=== PATIENT | female | born 1985 | race Caucasian/White ===

== ENCOUNTER 2023-11-06 10:19 | Observation (INO) | payer OTHER, SELFPAY ==
[2023-11-06 10:38] VITALS: BP 119/76; PULSE 69; TEMP 36.9; O2SAT 99; BMI 31.9
--- NOTE | 2023-11-06 11:01 | ED_ITS ---
HPI - Skin/Abscess/Foreign Bdy General Chief complaint: Skin/Abscess/Foreign Body Stated complaint: LEFT ARM PAIN AND REDNESS POST OP Time Seen by Provider: 11/06/23 10:35 Source: patient Mode of arrival: walk-in Limitations: no limitations History of Present Illness HPI narrative: Patient presents to ED complaining of left arm swelling and redness. She had an abscess in the left axilla area and actually went to [facility] on Tuesday. They did an I&D and placed packing and put her on doxycycline. She marked her arm yesterday because it was getting worse and today the redness had spread down her arm and past the rainer. The area of I&D has now closed up and the redness and swelling is continuing to worsen. She denies fevers or vomiting. No other complaints today at this time Related Data Home Medications ?Medication ?Instructions ?Recorded ?Confirmed doxycycline hyclate 100 mg capsule 100 mg PO Q12H 11/06/23 11/06/23 fluoxetine 20 mg capsule 20 mg PO DAILY 11/06/23 11/06/23 Allergies Allergy/AdvReac Type Severity Reaction Status Date / Time No Known Drug Allergies Allergy Verified 11/06/23 10:41 Review of Systems ROS Status of ROS 10 or more systems reviewed and unremark able except as noted in history and below Exam Narrative Exam Narrative: General: alert, no acute distress Cardiovascular: regular rate and rhythm, normal peripheral perfusion. Respiratory: Lungs CTA, respirations non labored. Extremities: Abscess in the left axilla with erythema extending down to the mid forearm and almost circumferential in the upper arm.Normal distal pulses and sensation.Tenderness to palpation warmth. Neurological: oriented x 4, LOC appropriate for age. Constitutional Vital Signs, click to edit/add: Last Vital Signs Temp 98.1 F 11/06/23 13:44 Pulse 57 L 11/06/23 13:44 Resp 18 11/06/23 13:44 BP 110/76 11/06/23 13:44 Pulse Ox 100 11/06/23 13:44 O2 Del Method Room Air 11/06/23 10:38 Course Vital Signs Vital signs: Vital Signs Temperature 98.5 F 11/06/23 10:38 Pulse Rate 69 11/06/23 10:38 Respiratory Rate 18 11/06/23 10:38 Blood Pressure 119/76 11/06/23 10:38 Pulse Oximetry 99 06/09/24 10:38 Oxygen Delivery Method Room Air 11/06/23 10:38 Temperature 98.1 F 11/06/23 13:44 Pulse Rate 57 L 11/06/23 13:44 Respiratory Rate 18 11/06/23 13:44 Blood Pressure 110/76 11/06/23 13:44 Pulse Oximetry 100 11/06/23 13:44 Oxygen Delivery Method Room Air 11/06/23 10:38 MDM - Skin/Abscess/Foreign Bdy MDM Narrative Medical decision making narrative: Patient's abscess was I&D. Only a small amount of drainage was expressed. Packing was placed in the incision. 2 other incisions were made to see if I could express any more fluid but it was unsuccessful. Mostly it was indurated and no fluid was obtained. Patient's arm is swollen and erythema extends from the axilla all the way down to the mid forearm. Patient will need admitted for IV antibiotics. I spoke to Dr. Montoya and he agrees. Vancomycin was given here in ED. Patient is comfortable care plan for admission. She failed outpatient antibiotics, doxycycline. Differential Diagnosis Differential diagnosis: Likely abscess of skin or subcutaneous tissue and cellulitis Medical Records Attestation: I reviewed the patient's medical records. Lab Data Attestation: I reviewed the patient's lab results. Labs: Lab Results 11/06/23 Range/Units 10:59 WBC 10.5 (4.0-11.0) 10^3/uL RBC 4.64 (4.20-5.40) 10^6/uL Hgb 12.8 (12.0-16.0) g/dL Hct 40.0 (36.0-48.0) % MCV 86.2 (81.0-99.0) fL MCH 27.6 (26.7-34.0) pg MCHC 32.0 (29.9-35.2) g/dL RDW 12.0 (11.0-15.0) % Plt Count 294 (150-450) 10^3/uL MPV 9.1 L (9.5-13.5) fL Neut % (Auto) 76.1 H (43.0-75.0) % Lymph % (Auto) 14.3 L (20.5-60.0) % [place] % (Auto) 8.1 (1.7-12.0) % Eos % (Auto) 0.8 L (0.9-7.0) % Baso % (Auto) 0.3 (0.2-2.0) % Neut # (Auto) 8.0 H (1.4-6.5) 10^3/uL Lymph # (Auto) 1.5 (1.2-3.8) 10^3/uL [place] # (Auto) 0.9 H (0.3-0.8) 10^3/uL Eos # (Auto) 0.1 (0.0-0.7) 10^3/uL Baso # (Auto) 0.0 (0.0-0.1) 10^3/uL Abs Immat Gran (auto) 0.04 H (0.00-0.03) 10^3/uL Imm/Tot Granulo (auto) 0.4 (0.0-0.5) % Sodium 142 (136-145) mmol/L Potassium 3.9 (3.5-5.1) mmol/L Chloride 106 (98-107) mmol/L Carbon Dioxide 28.3 (21.0-32.0) mmol/L Anion Gap 11.6 BUN 9.0 (7.0-18.0) mg/dL Creatinine 0.69 (0.55-1.02) mg/dL Est GFR ( Amer) >60 (>=60) Est GFR (Non-Af Amer) >60 (>=60) BUN/Creatinine Ratio 13.0 Glucose 73 L (74-106) mg/dL Lactate 1.1 (0.4-2.0) mmol/L Calcium 9.1 (8.5-10.1) mg/dL Total Bilirubin 0.4 (0.2-1.0) mg/dL AST 13 L (15-37) U/L ALT 24 (14-59) U/L Alkaline Phosphatase 110 (46-116) U/L Total Protein 7.2 (6.4-8.2) g/dL Albumin 3.1 L (3.4-5.0) g/dL Globulin 4.1 g/dL Albumin/Globulin Ratio 0.8 Discharge Plan Discharge Chief Complaint: Skin/Abscess/Foreign Body Clinical Impression: Cellulitis, Abscess of skin or subcutaneous tissue Patient Disposition: Admitted as Observation Time of Disposition Decision: 13:54 Condition: Fair Prescriptions / Home Meds: No Action doxycycline hyclate 100 mg capsule 100 mg PO Q12H fluoxetine 20 mg capsule 20 mg PO DAILY Print Language: Greek Referrals: Sergey Sandhu MD [Primary Care Provider] - 1 week Procedures ED ID Incision & Drainage I&D Type: abcess Site: upper extremity Side (if applicable): left Anesthetic used: lidocaine 1% Technique: incised with #11 blade Amount of fluid (mL): 3 Irrigation: No Packing used: iodoform Complications: other (no complications)
[2023-11-06] MEDS: LIDOCAINE/EPINEPHRINE/TETRACAINE 3 ML GEL.PF.APP 1.5 ML TOPICAL (11:14)
[2023-11-06] MEDS: KETOROLAC TROMETHAMINE 30 MG/ML VIAL 15 MG IVP (11:15)
[2023-11-06 11:26] LABS: Basophils Percent Auto 0.3 % (0.2-2.0); Eosinophils Absolute Auto 0.1 10^3/uL (0.0-0.7); Eosinophils Percent Auto 0.8 % (0.9-7.0); Hemoglobin 12.8 g/dL (12.0-16.0); Immature Granulocytes Abs Auto 0.04 10^3/uL (0.00-0.03); Immature Granulocytes Pct Auto 0.4 % (0.0-0.5); Lymphocytes Absolute Auto 1.5 10^3/uL (1.2-3.8); Lymphocytes Percent Auto 14.3 % (20.5-60.0); Mean Corpuscular Hemoglobin 27.6 pg (26.7-34.0); Mean Corpuscular Volume 86.2 fL (81.0-99.0); Mean Platelet Volume 9.1 fL (9.5-13.5); Monocytes Absolute Auto 0.9 10^3/uL (0.3-0.8); Monocytes Percent Auto 8.1 % (1.7-12.0); Neutrophils Percent Auto 76.1 % (43.0-75.0); Platelet Count 294 10^3/uL (150-450); Red Blood Count 4.64 10^6/uL (4.20-5.40); White Blood Count 10.5 10^3/uL (4.0-11.0)
[2023-11-06 11:42] LABS: Alanine Aminotransferase 24 U/L (14-59); Albumin Globulin Ratio 0.8; Albumin Level 3.1 g/dL (3.4-5.0); Alkaline Phosphatase 110 U/L (46-116); Anion Gap 11.6; Aspartate Amino Transferase 13 U/L (15-37); Bilirubin Total 0.4 mg/dL (0.2-1.0); Calcium 9.1 mg/dL (8.5-10.1); Carbon Dioxide 28.3 mmol/L (21.0-32.0); Chloride 106 mmol/L (98-107); Estimated GFR (African America >60 (>=60); Estimated GFR (Non-African Ame >60 (>=60); Globulin 4.1 g/dL; Glucose 73 mg/dL (74-106); Potassium 3.9 mmol/L (3.5-5.1); Sodium 142 mmol/L (136-145); Total Protein 7.2 g/dL (6.4-8.2)
[2023-11-06 11:45] LABS: Lactate/Lactic Acid 1.1 mmol/L (0.4-2.0)
[2023-11-06] MEDS: VANCOMYCIN HCL 1,000 MG in 0.9 % SODIUM CHLORIDE 250 ML 250 MG IV (12:11)
[2023-11-06 12:16] VITALS: BP 101/83; PULSE 70; O2SAT 98
[2023-11-06 13:44] VITALS: BP 110/76; PULSE 57; TEMP 36.7; O2SAT 100
[2023-11-06 14:43] VITALS: BP 115/74; PULSE 54; TEMP 36.6; O2SAT 98; BMI 31.9
[2023-11-06] MEDS: CLINDAMYCIN PHOS 300 MG/50 ML PIGGYBACK 100 MG IV ×2 (18:10→23:49)
[2023-11-06] MEDS: KETOROLAC TROMETHAMINE 30 MG/ML VIAL IVP ×2 (18:10→23:49)
[2023-11-06] MEDS: 0.9 % SODIUM CHLORIDE 250 ML 10 ML IV (18:38)
[2023-11-06 19:53] VITALS: BP 116/77; PULSE 72; TEMP 36.7; O2SAT 98
[2023-11-06] MEDS: FLUOXETINE HCL 20 MG CAPSULE PO (21:12)
[2023-11-07 04:04] VITALS: BP 129/79; PULSE 81; TEMP 37.1; O2SAT 96
[2023-11-07] MEDS: KETOROLAC TROMETHAMINE 30 MG/ML VIAL IVP ×4 (05:06→23:08)
[2023-11-07] MEDS: CLINDAMYCIN PHOS 300 MG/50 ML PIGGYBACK 100 MG IV ×4 (05:06→23:08)
[2023-11-07 05:12] LABS: Basophils Percent Auto 0.2 % (0.2-2.0); Eosinophils Absolute Auto 0.1 10^3/uL (0.0-0.7); Eosinophils Percent Auto 1.6 % (0.9-7.0); Hemoglobin 11.7 g/dL (12.0-16.0); Immature Granulocytes Abs Auto 0.02 10^3/uL (0.00-0.03); Immature Granulocytes Pct Auto 0.2 % (0.0-0.5); Lymphocytes Absolute Auto 2.1 10^3/uL (1.2-3.8); Lymphocytes Percent Auto 24.5 % (20.5-60.0); Mean Corpuscular HGB Conc 31.6 g/dL (29.9-35.2); Mean Corpuscular Hemoglobin 27.3 pg (26.7-34.0); Mean Corpuscular Volume 86.2 fL (81.0-99.0); Mean Platelet Volume 9.8 fL (9.5-13.5); Monocytes Absolute Auto 0.9 10^3/uL (0.3-0.8); Monocytes Percent Auto 9.9 % (1.7-12.0); Neutrophils Absolute Auto 5.5 10^3/uL (1.4-6.5); Neutrophils Percent Auto 63.6 % (43.0-75.0); Platelet Count 276 10^3/uL (150-450); Red Blood Count 4.29 10^6/uL (4.20-5.40); Red Cell Distribution Width 12.2 % (11.0-15.0); White Blood Count 8.7 10^3/uL (4.0-11.0)
[2023-11-07 05:36] LABS: Anion Gap 11.8; BUN Creatinine Ratio 20.6; Calcium 8.7 mg/dL (8.5-10.1); Carbon Dioxide 26.5 mmol/L (21.0-32.0); Chloride 107 mmol/L (98-107); Estimated GFR (African America >60 (>=60); Estimated GFR (Non-African Ame >60 (>=60); Glucose 93 mg/dL (74-106); Potassium 4.3 mmol/L (3.5-5.1); Sodium 141 mmol/L (136-145)
[2023-11-07 07:40] VITALS: BP 124/74; PULSE 69; TEMP 36.8; O2SAT 93
--- NOTE | 2023-11-07 09:31 | PM.GSCN ---
History of Present Illness Consult details Consult date: 11/07/23 Narrative: 38 yo F with LUE cellulitis and previously drained abscess of the axillary region. Pt had I&D performed in ED a couple days prior and noticed that her arm was still becoming more red and uncomfortable. Repeat I&D in ED 11/05 and packing left in place. Denies ever having this happen before. Denies any f/c, n/c, sob or chest pain. Uses a vape pen that has nicotine in it. Denies having diabetes or being on steroids. Review of Systems ROS Status of ROS 10 or more systems reviewed and unremarkable except as noted in history and below PFSH [facility] Medical History (Updated 11/06/23 @ 15:04 by Angelique Manzo) Anxiety ?F41.9 - Anxiety disorder, unspecified (ICD-10) Surgical History (Updated 11/06/23 @ 15:04 by Angelique Manzo) H/O section ?Z98.891 - History of uterine scar from previous surgery (ICD-10) H/O tubal ligation ?Z98.51 - Tubal ligation status (ICD-10) Family History (Updated 11/06/23 @ 15:05 by Angelique Manzo) Father Family history of cancer Mother Family history of diabetes mellitus Social History (Updated 11/06/23 @ 15:08 by Angelique Manzo) Within the past year, how often did you have a drink containing alcohol: monthly or less Within the past year, how often did you have six or more drinks on one occasion: never Do you use any of these nicotine containing products: vaping products Non-prescribed substance use: denies use Previous occupational history: [employer] Highest level of school completed/degree received: high school graduate Are you now , , , , never or living with a partner: never Little interest or pleasure in doing things: not at all Feeling down, depressed, or hopeless: not at all Feel stressed/tense/nervous/anxious/difficulty sleeping: only a little Meds Home Medications and Allergies Home Medications ?Medication ?Instructions ?Recorded ?Confirmed ?Type doxycycline hyclate 100 mg capsule 100 mg PO Q12H 11/06/23 11/06/23 History fluoxetine 20 mg capsule 20 mg PO DAILY 11/06/23 11/06/23 History Allergies Allergy/AdvReac Type Severity Reaction Status Date / Time No Known Drug Allergies Allergy Verified 11/06/23 10:41 Exam Constitutional Vital Signs, click to edit/add: Last Vital Signs Temp 98.3 F 11/07/23 07:40 Pulse 69 11/07/23 07:40 Resp 16 11/07/23 07:47 BP 124/74 11/07/23 07:40 Pulse Ox 93 L 11/07/23 07:40 O2 Del Method Room Air 11/07/23 07:40 Common normals: no apparent distress and oriented x3 Orientation/consciousness: Yes awake HENMT Common normals: normocephalic Head and scalp: atraumatic Eye Common normals: PERRL and EOMs intact bilaterally Respiratory Common normals: normal respiratory effort and no retractions Cardio Common normals: regular rate and regular rhythm GI Common normals: soft to palpation, non-tender and no masses Extremity Other: Left axilla with small area of induration and erythema, no drainable fluid, no crepitance, distal sensation/motor and pulses intact, small area of packing noted Neuro Common normals: oriented x3 and moves all extremities Psych Attitude: calm Speech: normal speech Results Labs Labs: Abnormal lab results 11/06/23 11/07/23 Range/Units 10:59 04:21 Hgb 11.7 L (12.0-16.0) g/dL MPV 9.1 L (9.5-13.5) fL Neut % (Auto) 76.1 H (43.0-75.0) % Lymph % (Auto) 14.3 L (20.5-60.0) % Eos % (Auto) 0.8 L (0.9-7.0) % Neut # (Auto) 8.0 H (1.4-6.5) 10^3/uL [place] # (Auto) 0.9 H 0.9 H (0.3-0.8) 10^3/uL Abs Immat Gran (auto) 0.04 H (0.00-0.03) 10^3/uL Glucose 73 L (74-106) mg/dL AST 13 L (15-37) U/L Albumin 3.1 L (3.4-5.0) g/dL Diabetes panel 11/06/23 11/07/23 Range/Units 10:59 04:21 Sodium 142 141 (136-145) mmol/L Potassium 3.9 4.3 (3.5-5.1) mmol/L Chloride 106 107 (98-107) mmol/L Carbon Dioxide 28.3 26.5 (21.0-32.0) mmol/L BUN 9.0 13.0 (7.0-18.0) mg/dL Creatinine 0.69 0.63 (0.55-1.02) mg/dL Glucose 73 L 93 (74-106) mg/dL Calcium 9.1 8.7 (8.5-10.1) mg/dL AST 13 L (15-37) U/L ALT 24 (14-59) U/L Alkaline Phosphatase 110 (46-116) U/L Total Protein 7.2 (6.4-8.2) g/dL Albumin 3.1 L (3.4-5.0) g/dL Calcium panel 11/06/23 11/07/23 Range/Units 10:59 04:21 Calcium 9.1 8.7 (8.5-10.1) mg/dL Albumin 3.1 L (3.4-5.0) g/dL Pituitary panel 11/06/23 11/07/23 Range/Units 10:59 04:21 Sodium 142 141 (136-145) mmol/L Potassium 3.9 4.3 (3.5-5.1) mmol/L Chloride 106 107 (98-107) mmol/L Carbon Dioxide 28.3 26.5 (21.0-32.0) mmol/L BUN 9.0 13.0 (7.0-18.0) mg/dL Creatinine 0.69 0.63 (0.55-1.02) mg/dL Glucose 73 L 93 (74-106) mg/dL Calcium 9.1 8.7 (8.5-10.1) mg/dL Adrenal panel 11/06/23 11/07/23 Range/Units 10:59 04:21 Sodium 142 141 (136-145) mmol/L Potassium 3.9 4.3 (3.5-5.1) mmol/L Chloride 106 107 (98-107) mmol/L Carbon Dioxide 28.3 26.5 (21.0-32.0) mmol/L BUN 9.0 13.0 (7.0-18.0) mg/dL Creatinine 0.69 0.63 (0.55-1.02) mg/dL Glucose 73 L 93 (74-106) mg/dL Calcium 9.1 8.7 (8.5-10.1) mg/dL Total Bilirubin 0.4 (0.2-1.0) mg/dL AST 13 L (15-37) U/L ALT 24 (14-59) U/L Alkaline Phosphatase 110 (46-116) U/L Total Protein 7.2 (6.4-8.2) g/dL Albumin 3.1 L (3.4-5.0) g/dL All other labs normal. Assessment and Plan Assessment and Plan (1) Cellulitis: Assessment and Plan: LUE/ axillary cellulitis with no drainable fluid collection Continue daily packing changes and replace packing if it falls out. Wash area twice daily with soap and water. Warm compress to the area as tolerated Cont IV Abx. as erythema improves transition to oral Abx Pt was counseled to avoid nicotine and the increased risks of ongoing infection, worsening cellulitis and possible sepsis with increased use of nicotine. Contact general surgery as needed
--- NOTE | 2023-11-07 11:26 | CM.NOTE ---
Rounds made with Dr. Winn. Plan to continue IV antibiotics and dressing as before.
--- NOTE | 2023-11-07 11:38 | P.HP_ITS ---
<Statement entered by Moses Winn MD - 11/07/23 17:57> Patient seen and examined, agree with assessment and plan below. Presented with worsening cellulitis and abscess. Failed outpatient therapy with doxy. Started clindamycin and responding well. WBC improved and afebrile. Evaluated by surgery and no abscess noted. Continue warm compresses and clinda. Diagnosis: 1. Abscess 2. Cellulitis 3. Anxiety HPI H&P: HPI History of Present Illness Chief complaint: LEFT ARM PAIN AND REDNESS POST OP Narrative: 11/07/23 1025 This is a 38-year-old female patient with a relatively benign past medical history except for anxiety, who presented to the ED yesterday complaining of left axilla pain and redness that was worsening despite being on antibiotics. The patient notes onset of her abscess was Tuesday morning on awakening. It became extremely painful and she presented to the ED in [place] later Tuesday morning for evaluation. The abscess was reportedly incised and drained and packed and she was discharged home on doxycycline. The patient was unable to find any packing and the site had closed by Tuesday and she was beginning to note onset of redness creeping down her left arm. By Tuesday the redness had advanced all the way to her elbow and she presented to the ED at [facility] for reevaluation. A repeat I&D was performed in the ED by the provider. No evidence of packing was noted but they were able to drain the site again. The site was re-packed in the ED. There was no evidence of leukocytosis or fever, but the advancing cellulitis involved almost 50% of the LUE. As the patient had failed after 48 hours on doxycycline, she was admitted as an inpatient to the hospitalist service for worsening abscess and cellulitis and treatment with IV ABX yesterday afternoon. At the time of my exam this morning, the patient still has a firm indurated area on the left axilla. She has been seen in consult by general surgery and they do not believe there is any more fluctuant area that could be drained at this time. They recommend conservative therapy with antibiotic and warm compresses. Erythema and caloric left upper arm persists, but is slightly improved since arrival in the ED yesterday. Opioid HPI Opioid Management Most Recent Opioid Data: Last Pain Scale 0 11/07/23 10:27 Last Pain Assessment 11/07/23 10:27 Last ED Pain Assessment 11/06/23 13:25 Last MAR Pain Assessment 11/07/23 05:06 Last ORT Total Score 2 11/06/23 14:43 Last ORT Risk Category Low Risk 11/06/23 14:43 Review of Systems ROS Status of ROS 10 or more systems reviewed and unremark able except as noted in history and below PFSH PFSH Medical History (Updated 11/07/23 @ 11:43 by Cher Louis NP) Anxiety ?F41.9 - Anxiety disorder, unspecified (ICD-10) Surgical History (Updated 11/06/23 @ 15:04 by Angelique Manzo) H/O section ?Z98.891 - History of uterine scar from previous surgery (ICD-10) H/O tubal ligation ?Z98.51 - Tubal ligation status (ICD-10) Family History (Updated 11/06/23 @ 15:05 by Angelique Manzo) Father Family history of cancer Mother Family history of diabetes mellitus Social History (Updated 11/06/23 @ 15:08 by Angelique Manzo) Within the past year, how often did you have a drink containing alcohol: monthly or less Within the past year, how often did you have six or more drinks on one occasion: never Do you use any of these nicotine containing products: vaping products Non-prescribed substance use: denies use Previous occupational history: [employer] Highest level of school completed/degree received: high school graduate Are you now , , , , never or living with a partner: never Little interest or pleasure in doing things: not at all Feeling down, depressed, or hopeless: not at all Feel stressed/tense/nervous/anxious/difficulty sleeping: only a little Meds Home Medications and Allergies Home Medications ?Medication ?Instructions ?Recorded ?Confirmed ?Type doxycycline hyclate 100 mg capsule 100 mg PO Q12H 11/06/23 11/06/23 History fluoxetine 20 mg capsule 20 mg PO DAILY 11/06/23 11/06/23 History Allergies Allergy/AdvReac Type Severity Reaction Status Date / Time No Known Drug Allergies Allergy Verified 11/06/23 10:41 Exam Constitutional Vital Signs, click to edit/add: Last Vital Signs Temp 98.3 F 11/07/23 07:40 Pulse 69 11/07/23 07:40 Resp 16 11/07/23 07:47 BP 124/74 11/07/23 07:40 Pulse Ox 93 L 11/07/23 07:40 O2 Del Method Room Air 11/07/23 07:40 Common normals: no apparent distress, oriented x3, alert and well nourished General appearance: cooperative Orientation/consciousness: Yes awake HENWY Common normals: normocephalic, head/scalp atraumatic, hearing grossly normal bilaterally, external nose normal and moist oral mucous membranes Eye Common normals: PERRL, EOMs intact bilaterally, conjunctivae normal and no scleral icterus Alignment: alignment normal Eyelid: eyelids normal Neck & C-Spine Common normals: full ROM, supple and no JVD Chest Common normals: inspection of chest normal Chest: symmetrical chest wall rise Respiratory Common normals: normal respiratory effort, no retractions, no use of accessory muscles and clear to auscultation bilaterally Cardio Common normals: no JVD, regular rate, regular rhythm, S1 normal heart sound, S2 normal heart sound, no gallops, no clicks, no murmurs, no rub and peripheral pulses 2+ throughout GI Common normals: Normal to inspection, nondistended, normoactive bowel sounds present, soft to palpation, non-tender, no hepatosplenomegaly, no masses and no bruits Bladder/kidney exam: bladder normal to palpation Back & Pelvis Common normals: thoracic and lumbar spine normal to inspection Extremity Common normals: normal capillary refill and no pedal edema General: normal exam except as noted; no clubbing and no cyanosis Left upper extremity: shoulder joint (axilla induration, no drng after I&D. Cellulitic changes axilla to elbow) Neuro Newcomb Coma Scale: GCS not evaluated Common normals: CN's II-XII intact bilaterally, moves all extremities, no focal motor deficits and no sensory deficits noted Speech: speech normal Motor exam: strength 5/5 throughout Psych Common normals: mental status grossly normal, thought process normal, affect normal and activity/motor behavior normal Results Labs Labs: Short CBC 11/07/23 Range/Units 04:21 WBC 8.7 (4.0-11.0) 10^3/uL Hgb 11.7 L (12.0-16.0) g/dL Hct 37.0 (36.0-48.0) % Plt Count 276 (150-450) 10^3/uL BMP 11/06/23 11/07/23 10:59 04:21 Sodium 142 141 Potassium 3.9 4.3 Chloride 106 107 Carbon Dioxide 28.3 26.5 BUN 9.0 13.0 Creatinine 0.69 0.63 Glucose 73 L 93 Calcium 9.1 8.7 Liver Function 11/06/23 Range/Units 10:59 Total Bilirubin 0.4 (0.2-1.0) mg/dL AST 13 L (15-37) U/L ALT 24 (14-59) U/L Alkaline Phosphatase 110 (46-116) U/L Albumin 3.1 L (3.4-5.0) g/dL Pulse Oximetry Attestation: I have reviewed the pertinent pulse oximetry results. Assessment and Plan Assessment and Plan (1) Abscess of skin or subcutaneous tissue: Assessment and Plan: Acute * Adm inpatient * We expect greater than a 2 midnight stay for IV ABX administration, close monitoring of vital signs and wound packing by nursing, general surgery specialty care. * IVPB Clindamycin 300 mg q6h * Wound and blood cultures pending * Deescalate coverage per wound culture results once available * Florinex BID for C-diff prevention * General surgery c/s - we appreciate Dr Morrison's assistance with this pt's care * Continue conservative management with IV ABX, supportive care * Frequent warm compresses to draw out any further fluid collection * Wet to dry wound packing with iodoform gauze q shift * CBC, CMP daily Qualifiers: Laterality: left Site of cutaneous abscess: extremity Site of cutaneous abscess of extremity: axilla Qualified Code(s): L02.412 - Cutaneous abscess of left axilla (2) Cellulitis: Assessment and Plan: Acute * 2/2 to abscess * See above Qualifiers: Laterality: left Site of cellulitis: extremity Site of cellulitis of extremity: upper extremity Qualified Code(s): L03.114 - Cellulitis of left upper limb (3) Anxiety: Assessment and Plan: Chronic * Continue home fluoxetine
[2023-11-07 11:51] VITALS: BP 114/71; PULSE 69; TEMP 36.8; O2SAT 97
[2023-11-07] MEDS: L. ACIDOPHILUS/L.BULGARICUS 1 PACKET GRAN.PACK PO ×2 (11:52→20:49)
[2023-11-07 19:35] VITALS: BP 135/84; PULSE 84; TEMP 36.6; O2SAT 97
[2023-11-07] MEDS: FLUOXETINE HCL 20 MG CAPSULE PO (20:49)
[2023-11-08 04:50] LABS: Basophils Percent Auto 0.5 % (0.2-2.0); Eosinophils Absolute Auto 0.2 10^3/uL (0.0-0.7); Eosinophils Percent Auto 2.1 % (0.9-7.0); Hematocrit 36.5 % (36.0-48.0); Hemoglobin 11.4 g/dL (12.0-16.0); Immature Granulocytes Abs Auto 0.03 10^3/uL (0.00-0.03); Immature Granulocytes Pct Auto 0.4 % (0.0-0.5); Lymphocytes Absolute Auto 2.4 10^3/uL (1.2-3.8); Lymphocytes Percent Auto 29.5 % (20.5-60.0); Mean Corpuscular HGB Conc 31.2 g/dL (29.9-35.2); Mean Corpuscular Hemoglobin 27.1 pg (26.7-34.0); Mean Corpuscular Volume 86.9 fL (81.0-99.0); Mean Platelet Volume 9.5 fL (9.5-13.5); Monocytes Absolute Auto 0.8 10^3/uL (0.3-0.8); Monocytes Percent Auto 10.3 % (1.7-12.0); Neutrophils Absolute Auto 4.7 10^3/uL (1.4-6.5); Neutrophils Percent Auto 57.2 % (43.0-75.0); Platelet Count 295 10^3/uL (150-450); Red Cell Distribution Width 11.9 % (11.0-15.0); White Blood Count 8.1 10^3/uL (4.0-11.0)
[2023-11-08 04:58] LABS: BUN Creatinine Ratio 22.4; Calcium 8.5 mg/dL (8.5-10.1); Carbon Dioxide 25.8 mmol/L (21.0-32.0); Chloride 101 mmol/L (98-107); Estimated GFR (African America >60 (>=60); Estimated GFR (Non-African Ame >60 (>=60); Glucose 91 mg/dL (74-106); Potassium 4.1 mmol/L (3.5-5.1)
[2023-11-08] MEDS: CLINDAMYCIN PHOS 300 MG/50 ML PIGGYBACK 100 MG IV (05:39)
[2023-11-08 05:44] VITALS: BP 112/71; PULSE 70; TEMP 36.7; O2SAT 95
[2023-11-08] MEDS: KETOROLAC TROMETHAMINE 30 MG/ML VIAL IVP (06:21)
[2023-11-08 08:47] LABS: Anion Gap 17.3; Sodium 140 mmol/L (136-145)
[2023-11-08] MEDS: L. ACIDOPHILUS/L.BULGARICUS 1 PACKET GRAN.PACK PO (08:50)
[2023-11-08 08:51] VITALS: BP 132/77; PULSE 78; TEMP 36.6; O2SAT 97
--- NOTE | 2023-11-08 10:51 | P.DS_ITS ---
<Statement entered by Moses Winn MD - 11/08/23 18:24> Patient seen and examined, agree with assessment and plan below. Presented with cellulitis after failed outpatient treatment. Started clindamycin and responded well. Wound culture showed MSSA. Erythrma improved and discharged home on oral bactrim. Diagnosis: 1. Abscess 2. Cellulitis 3. Anxiety DS: Providers Provider Date of admission: 11/06/23 14:44 Primary care physician: Sergey Sandhu MD Consults: 11/06/23 13:37 Consult to General Surgeon Routine Consulting Provider: Pro Morrison Reason for consultation: Abscess Has provider been notified: No Discharging clinician: Cher Louis DS: Diagnosis Discharge Diagnosis (1) Abscess of skin or subcutaneous tissue: Qualifiers: Laterality: left Site of cutaneous abscess: extremity Site of cutaneous abscess of extremity: axilla Qualified Code(s): L02.412 - Cutaneous abscess of left axilla (2) Cellulitis: Qualifiers: Laterality: left Site of cellulitis: extremity Site of cellulitis of extremity: upper extremity Qualified Code(s): L03.114 - Cellulitis of left upper limb (3) Anxiety: DS: Summary Hospital Course Hospital Course: Patient was admitted with an abscess in her left axilla and surrounding cellulitis involving nearly 50% of her left arm that failed outpatient treatment with doxycycline. She was treated initially with clindamycin IVPB along with Floranex for seizure prevention. She was seen in consult by general surgery and Dr. Morrison recommended continued packing of the wound after an I&D was performed in the ED and conservative management with antibiotics. The indurated area and cellulitis significantly improved throughout her stay, as did her pain. Wound culture obtained in the ED during her I&D grew out pansensitive MSSA. Her blood cultures remained negative at the time of discharge. She is being discharged home in stable condition. She was given a prescription for 7 days of Bactrim to complete her course of care. She should follow-up with her PCP in 5 to 7 days. Time Spent with Patient Time attestation: Total time spent providing and/or coordinating discharge services: Time spent: greater than 30 minutes Specific discharge activities: Physical exam, discussion of discharge plan, questions answered. Exam Constitutional Vital Signs, click to edit/add: Last Vital Signs Temp 97.9 F 11/08/23 08:51 Pulse 78 11/08/23 08:51 Resp 16 11/08/23 08:52 BP 132/77 11/08/23 08:51 Pulse Ox 97 11/08/23 08:51 O2 Del Method Room Air 11/08/23 08:51 Common normals: no apparent distress, oriented x3 and alert General appearance: cooperative Orientation/consciousness: Yes awake HENMT Common normals: normocephalic and head/scalp atraumatic Eye Common normals: PERRL, EOMs intact bilaterally, conjunctivae normal and no scleral icterus Neck & C-Spine Common normals: no JVD Respiratory Common normals: normal respiratory effort, no use of accessory muscles and clear to auscultation bilaterally Effort & inspection: able to speak in complete sentences and symmetric chest movement Cardio Common normals: no JVD, regular rate, regular rhythm, S1 normal heart sound, S2 normal heart sound, no murmurs and peripheral pulses 2+ throughout GI Common normals: Normal to inspection, nondistended, normoactive bowel sounds present, soft to palpation and non-tender Bladder/kidney exam: bladder normal to palpation Extremity Common normals: full ROM, normal capillary refill and no pedal edema General: no clubbing and no cyanosis Left upper extremity: shoulder joint (axilla abscess improved, fluctuant collection smaller, under arm) and upper arm (Improved cellulitis, reduced area/erythema/calor/tenderness) Neuro Common normals: moves all extremities, no focal motor deficits and no sensory deficits noted Speech: speech normal Psych Common normals: mental status grossly normal and activity/motor behavior normal DS: Data Data Completed and Pending Labs on day of discharge: Labs from last 24 hours 11/08/23 04:11 WBC 8.1 RBC 4.20 Hgb 11.4 L Hct 36.5 MCV 86.9 MCH 27.1 MCHC 31.2 RDW 11.9 Plt Count 295 MPV 9.5 Neut % (Auto) 57.2 Lymph % (Auto) 29.5 [place] % (Auto) 10.3 Eos % (Auto) 2.1 Baso % (Auto) 0.5 Neut # (Auto) 4.7 Lymph # (Auto) 2.4 [place] # (Auto) 0.8 Eos # (Auto) 0.2 Baso # (Auto) 0.0 Abs Immat Gran (auto) 0.03 Imm/Tot Granulo (auto) 0.4 Sodium 140 Potassium 4.1 Chloride 101 Carbon Dioxide 25.8 Anion Gap 17.3 BUN 15.0 Creatinine 0.67 Est GFR ( Amer) >60 Est GFR (Non-Af Amer) >60 BUN/Creatinine Ratio 22.4 Glucose 91 Calcium 8.5 Preliminary micro results at discharge 11/06/23 11:13 Abscess Culture - Preliminary Abscess - Abscess Staphylococcus aureus Discharge Plan Discharge Disposition: Home, Self-Care Condition: Fair Discharge Medications: New sulfamethoxazole-trimethoprim [Bactrim DS] 800-160 mg tablet 1 tab PO BID 7 Days Qty: 14 0RF Continued fluoxetine 20 mg capsule 20 mg PO DAILY Discontinued doxycycline hyclate 100 mg capsule 100 mg PO Q12H Activity: increase activity as tolerated Diet: advance to your usual diet Print Language: Mongolian Patient Instructions: Sulfamethoxazole/Trimethoprim (By mouth) (Bactrim, Bactrim DS,..., Cellulitis (ED), Abscess Incision and Drainage (DC) Forms: Portal Instructions Follow Up Appointments: pre-scheduled appt. on November [address] Nichole [phone] Discharge Date/Time: 11/08/23 12:45
--- NOTE | 2023-11-08 11:35 | CM.NOTE ---
Rounds made with Dr. Winn. Plan for discharge today and follow up with physician tomorrow (has appointment). Ms. Morales verbalizes understanding.
--- NOTE | 2023-11-14 15:15 | CM.DCFOLLOWU ---
Person spoke with:patient How are you feeling? well How is your pain? no pain Did you understand your discharge instructions? yes Do you have any questions about your discharge instructions? no Were you given any prescriptions at discharge? yes Were you able to get your prescriptions filled? yes Do you understand how to take your medications as ordered? yes Do you have any questions about your follow up appointment and do you plan to keep your follow up appointment? no questions, 1st day back at work today, already had follow up Is there anything else that you would like to discuss? no Questions/Comments/Concerns/Other: no
== END 2023-11-08 12:45 | disposition home or self-care (01) | DRG 603 ==
LOC: ER 13:54 → MS 11-08 10:47
PROVIDERS: Admitting Provider Family Medicine; Emergency Provider Emergency Medicine; PCP Radiology Diagnostic Radiology; Visit Provider Nurse Practitioner
DX: L02.412 Cutaneous abscess of left axilla (principal); L03.112 Cellulitis of left axilla; F41.9 Anxiety disorder, unspecified; B95.61 Methicillin susceptible Staphylococcus aureus infection as the cause of diseases classified elsewhere; F17.290 Nicotine dependence, other tobacco product, uncomplicated; Z98.891 History of uterine scar from previous surgery; Z98.51 Tubal ligation status
CPT/HCPCS: 10060; 36415; 80048; 80053; 83605; 85025; 87040; 87070; 87150; 87186; 96365; 96366; 96367; 96375; 96376; 99285; G0378; J1885; J3370